=== PATIENT | female | born 1950 | race Caucasian/White ===

== ENCOUNTER 2016-11-14 09:49 | Day surgery (SDC) | payer OTHER ==
[~2016-11-14] VITALS: Ht 168.9 cm; Wt 74.8 kg
[~2016-11-14 09:49] MED LIST: 0.9% Sodium Chloride 1,000 ML IV SCH; Sodium Chloride LOK Flush 10 mL Syringe IV PRN; fentaNYL-PF 50 mCg/mL 2 mL Inj IVPUSH PRN
[2016-11-14] MEDS ORDERED: ASCO100089 PO (10:19)
[2016-11-14] MEDS ORDERED: VITA1TAB47 PO (10:19)
[2016-11-14] MEDS ORDERED: CHOL200047 PO (10:19)
[2016-11-14 10:31] VITALS: BP 116/70; PULSE 64; RESP 15; O2SAT 97
[2016-11-14 11:25] VITALS: BP 98/59; PULSE 63; RESP 16; O2SAT 94
[2016-11-14 11:35] VITALS: BP 104/60; PULSE 54; RESP 16; O2SAT 96
[2016-11-14 11:45] VITALS: BP 102/63; PULSE 56; RESP 16; O2SAT 97
[2016-11-14 11:55] VITALS: BP 102/63; PULSE 58; RESP 16; O2SAT 98
[2016-11-14 12:05] VITALS: BP 107/67; PULSE 56; RESP 16; O2SAT 99
--- NOTE | 2016-11-14 13:47 | ENDO ---
[address] [address] ENDOSCOPY PROCEDURE PATIENT: PRATIBHA MABRY : 1950 MR#: [id number] ADMIT: 11/14/2016 JOB ID: [id number] DATE: 11/14/2016 PROCEDURE: Colonoscopy. INDICATIONS: Screening. The patient's ASA classification is 1. Mallampati score is 2. MEDICATIONS: 1. Versed 3 mg. 2. Fentanyl 75 mcg. INSTRUMENT USED: PCF H 190 L. PREPARATION QUALITY: Was good. PROCEDURE DETAILS: After informed consent was obtained, the patient was brought into the GI suite, where she was placed on oxygen via nasal cannula and monitored with continuous pulse oximeter, telemetry and blood pressure monitoring. A time-out was performed. Then, she was placed in the left lateral decubitus position and medications were administered for sedation. Digital rectal examination was performed, which was unremarkable. The colonoscope was then inserted into the rectum and advanced under direct visualization to the cecum, which was identified by the presence of the ileocecal valve and appendiceal orifice. Once the cecum was reached, the colonoscope was withdrawn back to the rectum. Mucosa and lumen were examined. In the rectum, retroflexion was performed. Following retroflexion, remaining air in the rectum was suctioned and the procedure was completed. FINDINGS: 1. There was a diminutive polyp in the sigmoid colon that was removed with cold biopsy forceps. 2. Diminutive polyp in the rectum that was removed with cold biopsy forceps. IMPRESSION: 1. Sigmoid polyp. 2. Rectal polyp. RECOMMENDATIONS: Repeat colonoscopy pending polyp pathology results. COMPLICATIONS: None. ESTIMATED BLOOD LOSS: Less than 5 mL.
--- NOTE | 2016-11-17 11:37 | PATH ---
SURGICAL PATHOLOGY Attending Physician:Juan M Viveros CASE STATUS: Signed Out PATIENT NAME: PRATIBHA MABRY PID: [id number] : 1950 DATE COLLECTED:11/14/2016 19:31 SPECIMEN: 1: Colon, Biopsy 2: Rectum, Biopsy CLINICAL HISTORY: 1). SIGMOID POLYP 2). RECTAL POLYP FINAL DIAGNOSIS: 1.SIGMOID COLON POLYP: HYPERPLASTIC POLYP. 2.RECTAL POLYP: POLYPOID-SHAPED FRAGMENT OF NORMAL-APPEARING COLON MUCOSA CONSISTENT WITH MUCOSAL POLYPOID REDUNDANCY. NEGATIVE FOR DYSPLASIA AND MALIGNANCY. ICD10 CODE K63.5 GROSS DESCRIPTION: Received are two formalin-filled containers, both labeled with the patient' s name: 1. Received in formalin, labeled with the patient' s name and "sigmoid polyp", is one fragment of singh, soft tissue measuring 0.2 x 0.2 x 0.2 cm. The fragment is totally submitted in cassette 1A. 2. Received in formalin, labeled with the patient' s name and "rectal polyp", is one fragment of singh, soft tissue measuring 0.1 x 0.1 x 0.1 cm. The fragment is totally submitted in cassette 2A. ([id number]) MICRO DESCRIPTION: See diagnosis. ICD-9 CODES: CPT CODES: 1: 00301 2: 57983 Electronically Signed Out Vu Calire MD [facility] [address], [place] [address] Technical component performed at [facility], [facility] [address], [place], [address]
== END 2016-11-14 23:59 | disposition home or self-care (01) ==
LOC: END 09:49
PROVIDERS: ATTEND Internal Medicine Gastroenterology
DX: Z12.11 Encounter for screening for malignant neoplasm of colon (principal); D12.5 Benign neoplasm of sigmoid colon; K62.1 Rectal polyp; E78.2 Mixed hyperlipidemia; Z79.890 Hormone replacement therapy; Z87.891 Personal history of nicotine dependence
CPT/HCPCS: 45380; 99153; G0500; J2250; J3010; J7030